=== PATIENT | female | born 1985 | race Caucasian/White ===

== ENCOUNTER 2021-03-18 19:07 | Outpatient (CLI) | payer OTHER ==
[~2021-03-18] VITALS: Ht 167.6 cm; Wt 109.5 kg
--- NOTE | 2021-03-18 19:00 | NUR ---
PT AMBULATED UP TO UNIT AND SHOWN TO ROOM LDR4 BY THIS RN AND INSTUCTED TO PUT ON GOWN AND LEAVE TOILET IN BATHROOM FOR RN TO INSPECT. PT PRESENTS REPORTED SPOTTING ON TOILET TISSUE AT APPROX. 1800. PT DENIES CONTRACTIONS, SROM AND CONFIRMS MOVEMENT. PT IS , 31.4WEEKS, GBS UNKNOWN, RUBELLA IMMUNE.
[2021-03-18 19:05] VITALS: BP 167/78; PULSE 96; TEMP 98.3
--- NOTE | 2021-03-18 19:05 | NUR ---
EFM AND TOCO APPLIED AT THIS TIME.
--- NOTE | 2021-03-18 19:30 | NUR ---
VISIBLE BREAKS IN FHTS ARE OBSERVED RN AT BEDSIDE AND ADJUSTING MONITOR. NO CONTRACTIONS DETECTED ON MONITOR, NONE PER PALPATION, AND PT DENIES FEELING CONTRACTIONS.
[2021-03-18 20:00] VITALS: BP 141/71; PULSE 85
--- NOTE | 2021-03-18 20:00 | NUR ---
VISIBLE BREAKS IN FHTS ARE OBSERVED, RN AT BEDSIDE AND ADJUSTING MONITOR. MOVEMENT IS HEART PER MONITOR.
--- NOTE | 2021-03-18 20:15 | NUR ---
DISCHARGE INSTUCTIONS REVIEWED WITH PT AND VERBALIZED AN UNDERSTANDING AND DENIES FURTHER QUESTIONS. PT SIGNED COPY AND GIVEN A COPY OF DISCHARGE INSTRUCTIONS.
--- NOTE | 2021-03-18 20:20 | NUR ---
PT AMBULATED OFF FLOOR AT THIS TIME IN STABLE UNDELIVERED CONDITION. PT DISCHARGED TO HOME AT THIS TIME.
== END 2021-03-18 21:30 | disposition home or self-care (01) ==
LOC: LDRO 19:07 → LDR 21:30
DX: O46.93 Antepartum hemorrhage, unspecified, third trimester (principal); Z3A.31 31 weeks gestation of pregnancy
CPT/HCPCS: OP

== ENCOUNTER 2021-05-14 08:22 | Inpatient (IN) | payer OTHER ==
[~2021-05-14] VITALS: Ht 170.2 cm; Wt 118.6 kg
[2021-05-17] VITALS (44 sets, daily range): BP systolic 87–160; BP diastolic 45–89; PULSE 60–116; TEMP 97.4–98.2
--- NOTE | 2021-05-17 06:25 | NUR ---
Patient ambulatory onto unit with spouse. Changed into clean gown. FHR monitor/TOCO applied. Vital signs stable. Pt denies any vaginal bleeding, leaking of fluid, decreased movement, or regular contractions. Induction of labor and plan of care discussed. Pt verbalizes understanding.
[2021-05-17] MEDS ORDERED: LEXAPRO 10MG10 MG PO (06:38)
[2021-05-17] MEDS ORDERED: PRENATAL TABLET PO (06:38)
[2021-05-17] MEDS ORDERED: PROCARDIA10 MG PO (06:41)
[2021-05-17 07:48] LABS: HEMOGLOBIN 12.2 g/dl (12.5-16.0); MEAN CELL VOLUME 88 fl (80.0-100.0); MEAN CORPUSCULAR HEMOGLOBIN 30 pg (27-31); MEAN CORPUSCULAR HGB CONC 34 g/dl (33.0-37.0); MEAN PLATELET VOLUME 9.7 fl (7.4-10.4); PLATELET COUNT 282 K/mm3 (130-400); RED BLOOD COUNT 4.04 M/mm3 (4.10-5.30); REDCELL DISTRIBUTION WIDTH-CV 12.6 % (11.5-14.5)
[2021-05-17 07:52] LABS: HEMATOCRIT 35.5 % (37.0-47.0)
[2021-05-17 08:30] LABS: BAND 1 % (0-10); BASOPHIL 1 % (0-2); LYMPHOCYTE 14 % (20.0-51.0); NEUTROPHILS 74 % (42.0-75.2); PLATELET ESTIMATE NORMAL (NORMAL); POLYCHROMASIA 1+
--- NOTE | 2021-05-17 14:00 | NUR ---
1358 THIS RN at bedside changing from right lateral to left lateral A Hardacre at bedside 1400 SVE by this RN 6-/-1. LR infusing 1404 pt repositioned to right lateral. 1408 This RN at bedside. FHR improving to baseline of 120.
--- NOTE | 2021-05-17 16:36 | NUR ---
1602 SVE /+1. 1609 Dr. Trent called for delivery 1622 Dr. Trent at patient's bedside. Setting up for delivery. Patient starts pushing with contractions. 1632 Spontaneous vaginal delivery of viable female infant. Nuchal Cord x1. Dr Trent stimulates and bulb suctions . Cord stops pulsating. Cord clamped by Dr Trent and cut by FOB. to mother's chest. Shad Gutierrez takes over care of infant. 1636 Spontaneous delivery of placenta. Pitocin bolus started per protocol. Fundal massage done by Dr. Trent. 2nd degree laceration noted. Repaired by Dr. Trent. Fundal massage done. Firm/midline. Small amt of bleeding noted. Pericare done. Clean pad placed under pt. Safety precautions and plan of care discussed with pt. Pt verbalizes understanding.
--- NOTE | 2021-05-17 19:30 | NUR ---
1930 IV TO INT. UP TO BR WITH ASSIST. UNABLE TO VOID. PERICARE DONE. TO ROOM 207 PER W/C AND VISHAL WELL
[2021-05-18 04:00] VITALS: BP 116/56; PULSE 64; TEMP 98.5
[2021-05-18 08:57] VITALS: BP 122/50; PULSE 81; TEMP 98.2
--- NOTE | 2021-05-18 09:06 | NUR ---
Initial visit; Patient and her thanked [employer] for offering congratulations for the of their son. [employer]er thanked them for choosing [facility].
[2021-05-18] MEDS ORDERED: MOTRIN 800800 MG/TAB PO (11:25)
[2021-05-18] MEDS ORDERED: PERCOCET 325 MG1 TA2 PO (11:26)
[2021-05-18 16:40] VITALS: BP 120/53; PULSE 75; TEMP 98.2
--- NOTE | 2021-05-18 19:24 | NUR ---
Report received. Plan of care reviewed. Pt in bed, resting.
--- NOTE | 2021-05-18 19:27 | NUR ---
Report recieved. Plan of care reviewed. Pt in bed, resting. Significant other in room at bedside.
[2021-05-18 20:00] VITALS: BP 117/52; PULSE 70; TEMP 97.7
[2021-05-19 07:25] VITALS: BP 125/65; PULSE 61; TEMP 97.9
[2021-05-19 15:25] VITALS: BP 110/51; PULSE 80; TEMP 97.8
== END 2021-05-19 14:30 | disposition home or self-care (01) | DRG 806 ==
LOC: OB 05-17 06:16 → LDR 05-17 06:16 → OB 05-17 19:30
PROVIDERS: ADMIT Obstetrics & Gynecology
PROC: 10E0XZZ Delivery of Products of Conception, External Approach (ICD-10-PCS; principal; 2021-05-17)
PROC: 0KQM0ZZ Repair Perineum Muscle, Open Approach (ICD-10-PCS; 2021-05-17)
PROC: 10907ZC Drainage of Amniotic Fluid, Therapeutic from Products of Conception, Via Natural or Artificial Opening (ICD-10-PCS; 2021-05-17)
PROC: 3E033VJ Introduction of Other Hormone into Peripheral Vein, Percutaneous Approach (ICD-10-PCS; 2021-05-17)
DX: O48.0 Post-term pregnancy (principal); O10.02 Pre-existing essential hypertension complicating childbirth; Z37.0 Single live birth; E74.00 Glycogen storage disease, unspecified; O99.284 Endocrine, nutritional and metabolic diseases complicating childbirth; O70.1 Second degree perineal laceration during delivery; O99.344 Other mental disorders complicating childbirth; F41.9 Anxiety disorder, unspecified; O69.81X0 Labor and delivery complicated by cord around neck, without compression, not applicable or unspecified; Z3A.40 40 weeks gestation of pregnancy
CPT/HCPCS: J2405; J2590; J7120